=== PATIENT | female | born 1950 | race Caucasian/White ===

== ENCOUNTER → 2016-04-14 09:00 | Day surgery (SDC) | payer BC, MEDICARE ==
[~2016-04-14 09:00] MED LIST: Acetaminophen TAB* 325 MG PO PRN; Buffered Lidocaine 1% SYR 3ML* 3 ML/SYR SYRINGE INTRADERM ONE; Buffered Lidocaine 1% SYR 3ML* 3 ML/SYR SYRINGE ONE; Cyclopentolate 1% OPTH.SOL* 2 ML BTL ONE; Flurbiprofen 0.03% OPTH.SOL* 2.5 ML BTL ONE; Lidocaine 1% MPF* 2 ML VIAL ONE; Midazolam* 1 MG/ML 2 ML VIAL (2 MG) ONE; Neomycin/Polymy/Dex OPHTH.OIN* 3.5 GM ONE; Phenylephr/Ketorolac 1%/0.3% OPH DROP BTL ONE; Phenylephrine 2.5% OPTH.SOL* 2 ML BTL ONE; Proparacaine 0.5% OPHTH.SOL* 15 ML BTL ONE; Tetracaine 0.5% OPTH.SOL 4 ML* 1 DROP BTL ONE; Tropicamide 1% OPTH.SOL* BTL ONE; Trypan Blue 0.06% SOL* 0.5 ML BTL ONE; fentaNYL* 50 MCG/ML 2 ML VIAL (100 MCG VIAL) ONE
[2016-04-14 12:14] VITALS: BP 149/66
--- NOTE | 2016-04-15 03:02 | OP ---
DATE OF OPERATION: 04/14/16 - [facility] DATE OF : 46 SURGEON: Dr. Umair Burks. WIRE MACHINE CUTTER: None. ANESTHESIOLOGIST: Santo Bishop MD ANESTHESIA: Topical with intravenous sedation. PRE-OP DIAGNOSIS: Dense white cataract, left eye. POST-OP DIAGNOSIS: Dense white cataract, left eye. OPERATIVE PROCEDURE: Phacoemulsification of cataract left eye with posterior chamber intraocular lens implant. COMPLICATIONS: None. BLOOD LOSS: None. DESCRIPTION OF PROCEDURE: The patient was brought to the operating room and given a small amount of intra-venous sedation. A drop of Tetracaine was placed into her left eye. The patient was prepped and draped in the usual sterile fashion for ophthalmic surgery and attention was directed to the left eye where a speculum was placed. The pupil was noted to be approximately 4 mm in diameter despite dilating drops. Omidria was added to the irrigating solution. A paracentesis was created at the 5 o'clock position and 0.1 cc of 1% preservative-free lidocaine was injected into the anterior chamber. This was followed by air. This was followed by VisionBlue dye. This was followed by DisCoVisc. At this point, the eye was stabilized digitally while a 2.75 mm keratome was used to create a triplanar clear corneal incision at the 3 o'clock position. A continuous curvilinear capsulorrhexis was created with a cystotome and Utrata forceps. Milky white material oozed anteriorly and was aspirated with irrigation and aspiration to complete the capsulorrhexis with good visualization. The remainder of the milky white material was aspirated leaving a dense warren brunescent disc of nucleus in the capsular bag. Phacoemulsification was performed in a gfjqoy-umy-xjnocpi technique to create four fragments, which were removed. The capsule was now devoid of cortex but had some wisps, which were polished with a capsular polishing instrument. Irrigation and aspiration was performed finally to remove all lens material from the capsular bag. DisCoVisc was used to inflate the capsular bag. DisCoVisc had been intermittently reinstilled into the anterior chamber during the course of the case to help protect endothelium as heavy levels of phacoemulsification power were required to break the lens up. Ultimately, with an intact capsule around capsulorrhexis and capsular bag inflated by DisCoVisc, an intraocular lens was implanted. An SN60AT 12.5 diopter lens was folded and inserted into the capsular bag. Viscoelastic was removed with irrigation and aspiration. BSS on a cannula was used to hydrate the corneal stroma and seal the wound. At the end of the case, the pupil was round and the lens was centered. The eye pressure appeared normal and the wound was watertight. The speculum was removed and topical Maxitrol ointment was placed on the surface of the eye. The eye was closed, patched and shielded and the patient was sent to the recovery room in stable condition with postop instructions and a followup appointment given. [id number] #: [id number]
== END | disposition home or self-care (01) ==
LOC: OREAST 09:00
PROVIDERS: ATTEND Ophthalmology
DX: H26.8 Other specified cataract (principal); Z98.41 Cataract extraction status, right eye; Z96.1 Presence of intraocular lens; F17.210 Nicotine dependence, cigarettes, uncomplicated; R03.0 Elevated blood-pressure reading, without diagnosis of hypertension
CPT/HCPCS: A9270-GY; C9447; J2250; J3010; V2632